=== PATIENT | male | born 1975 | race Two or more races ===

== ENCOUNTER 2023-11-17 10:24 | Observation (INO) | payer OTHER ==
[2023-11-17] VITALS (23 sets, daily range): BP systolic 114–146; BP diastolic 69–92; PULSE 62–95; RESP 12–18; TEMP 97.6–98.6; O2SAT 97–100
[~2023-11-17] VITALS: Ht 170.2 cm; Wt 96.0 kg
[2023-11-17] MEDS: ringers solution, lacted 1,000 ML IV SCH ×2 (05:30→22:27)
[~2023-11-17 10:24] MED LIST: ATOR80TA PO; DEXT30DR6 OP; DOCU100C40 PO; MONT-40 PO; cefazolin 2gm/D5W 100mL 100 ML IV ONE; famotidine 20mg tablet PO ONE; vancomycin 1,500 MG in NS 300ml IV soln IV ONE
[2023-11-17 12:02] LABS: BASOPHILS % (AUTO) 0.6 % (0-1); EOSINOPHILS # (AUTO) 0.2 X10'3 (0-0.9); EOSINOPHILS % (AUTO) 3.1 % (0-6); HEMATOCRIT 46.5 % (42.0-52.0); HEMOGLOBIN 15.6 g/dl (14.0-17.9); LYMPHOCYTES # (AUTO) 2.2 X10'3 (1.1-4.8); LYMPHOCYTES % (AUTO) 33.5 % (21-51); MEAN CORPUSCULAR HEMOGLOBIN 29.8 PG (27.0-31.0); MEAN CORPUSCULAR HGB CONC 33.6 g/dL (33.0-36.5); MEAN CORPUSCULAR VOLUME 88.5 FL (78-98); MEAN PLATELET VOLUME 7.3 FL (7.4-10.4); MONOCYTES # (AUTO) 0.4 X10'3 (0-0.9); MONOCYTES % (AUTO) 6.1 % (2-12); NEUTROPHILS # (AUTO) 3.7 X10'3 (1.8-7.7); NEUTROPHILS % (AUTO) 56.7 % (42-75); PLATELET COUNT 214 X10'3 (140-440); RED BLOOD COUNT 5.25 X10'6 (4.70-6.10); RED CELL DISTRIBUTION WIDTH 13.7 % (11.5-14.5); WHITE BLOOD COUNT 6.6 X10'3 (4.5-11.0)
[2023-11-17 12:40] LABS: ALANINE AMINOTRANSFERASE 25 U/L (12-78); ALBUMIN 3.7 G/DL (3.4-5.0); ALKALINE PHOSPHATASE 68 IU/L (46-116); ANION GAP 6 (8-16); ASPARTATE AMINO TRANSFERASE 15 U/L (10-37); BILIRUBIN,TOTAL 0.9 MG/DL (0.1-1.0); BLOOD UREA NITROGEN 10 MG/DL (7-18); BUN/CREATININE RATIO 10.3 (10.0-20.0); CALCIUM 8.8 MG/DL (8.5-10.1); CHLORIDE 105 MMOL/L (99-107); CREATININE 0.97 MG/DL (0.60-1.10); GLUCOSE 99 MG/DL (70-104); POTASSIUM 4.2 MMOL/L (3.5-5.1); SODIUM 138 MMOL/L (135-145); TOTAL CARBON DIOXIDE 27.1 MMOL/L (24-32); TOTAL PROTEIN 7.4 G/DL (6.4-8.2); eCRCL 86 ML/MIN; eGFR 82 ML/MIN
[2023-11-17] MEDS ORDERED: epiNEPHrine 1 mg/ml 30ml MDV ONE (13:47)
[2023-11-17] MEDS ORDERED: Thrombin (Bovine) 5,000 unit vial TP ONE ×2 (13:48→14:22)
[2023-11-17] MEDS ORDERED: gelatin sponge, absorbable (Gelfoam 100) sponge TP ONE (13:48)
[2023-11-17] MEDS ORDERED: ROPIVAcaine 0.5% (5mg/ml) 30ml vial ONE ×2 (13:48→14:36)
[2023-11-17] MEDS ORDERED: epiNEPHrine 1 mg/ml inj ONE (14:22)
[2023-11-17] MEDS ORDERED: proCHLORperazine 10 MG/2 ml inj IV PRN (14:25)
[2023-11-17] MEDS ORDERED: morphine 2 MG/ML inj. syringe IV PRN (14:25)
[2023-11-17] MEDS ORDERED: morphine 4 MG/ML inj SYRINge IV PRN (14:25)
[2023-11-17] MEDS ORDERED: ondansetron/PF 4mg/2ml inj IV PRN ×2 (14:25→19:10)
[2023-11-17] MEDS ORDERED: ringers solution, lacted 1,000 ML IV SCH (14:25)
[2023-11-17] MEDS ORDERED: meperidine/PF 25mg/ml syringe IV PRN ×3 (14:25)
[2023-11-17] MEDS ORDERED: fentaNYL/PF 50MCG/1 ML 2ML syringe ONE ×2 (14:33→16:54)
[2023-11-17] MEDS ORDERED: propofol inj 20 ML IV ONE (14:34)
[2023-11-17] MEDS ORDERED: midazolam 1 mg/ML 2ml injection ONE (14:34)
[2023-11-17] MEDS ORDERED: LIDOcaine 2% (20mg/ml) 5ml vial ONE (14:34)
[2023-11-17] MEDS ORDERED: sevoflurane 250ml liquid IH ONE (14:34)
[2023-11-17] MEDS ORDERED: ondansetron/PF 4mg/2ml inj ONE (17:08)
[2023-11-17] MEDS ORDERED: dexamethasone sod phosphate 4mg/ml inj. ONE (17:08)
[2023-11-17] MEDS ORDERED: HYDROmorphone/PF 0.2 MG/ML SYRINGE IV PRN ×2 (19:10)
[2023-11-17] MEDS: normal saline 1000ml 1,000 ML IV SCH (19:10)
[2023-11-17] MEDS ORDERED: HYDROcodone/acetaminophen 5mg/325mg tablet PO PRN (19:10)
[2023-11-17] MEDS ORDERED: polyvinyl alcohol ophthalmic drops 15ml bottle EACHEYE PRN (20:05)
[2023-11-18 00:45] VITALS: BP 115/69
[2023-11-18] MEDS: HYDROcodone/acetaminophen 10/325mg tab PO PRN ×3 (01:59→14:39)
[2023-11-18 08:00] VITALS: RESP 16; O2SAT 95
[2023-11-18] MEDS: montelukast 10mg tablet PO SCH (08:00)
[2023-11-18] MEDS: docusate sod 100mg capsule PO SCH ×2 (08:16→21:05)
[2023-11-18] MEDS: atorvastatin 20mg tablet PO SCH (08:16)
[2023-11-18 10:00] VITALS: BP 122/67; PULSE 90; RESP 16; TEMP 98.1; O2SAT 95
[2023-11-18] MEDS: normal saline 1000ml 1,000 ML IV SCH (14:48)
[2023-11-18 18:00] VITALS: BP 125/71; PULSE 80; RESP 18; TEMP 97.1; O2SAT 97
[2023-11-18 21:00] VITALS: RESP 16; O2SAT 97
[2023-11-18 22:00] VITALS: BP 110/57; PULSE 70; RESP 18; TEMP 98.2; O2SAT 96
[2023-11-19] MEDS: HYDROcodone/acetaminophen 10/325mg tab PO PRN ×3 (01:41→11:52)
[2023-11-19 06:00] VITALS: BP 90/59; PULSE 61; RESP 18; TEMP 97.5; O2SAT 96
[2023-11-19] MEDS: montelukast 10mg tablet PO SCH (07:27)
[2023-11-19] MEDS: atorvastatin 20mg tablet PO SCH (07:28)
[2023-11-19] MEDS: docusate sod 100mg capsule PO SCH (08:00)
[2023-11-19 10:00] VITALS: BP 106/64; PULSE 60; RESP 16; TEMP 98; O2SAT 96
[2023-11-19 17:47] VITALS: RESP 18
== END 2023-11-19 19:12 ==
LOC: PAS 10:24 → EEVIPCON 13:15 → ORTHO 4S 19:21
PROVIDERS: ADMIT Orthopaedic Surgery; ATTEND Orthopaedic Surgery
DX: M23.221 Derangement of posterior horn of medial meniscus due to old tear or injury, right knee (principal); G89.18 Other acute postprocedural pain; E78.5 Hyperlipidemia, unspecified; F41.8 Other specified anxiety disorders; E66.9 Obesity, unspecified; Z79.899 Other long term (current) drug therapy
CPT/HCPCS: 29882; 29888; 36415; 64447; 80053; 82948; 85025; 96365; 96375; 97116; 97161; 97530; C1713; C1762; G0378; J0171; J0690; J1100; J1170; J2175; J2250; J2405; J2704; J2795; J3010; J3370; J3490; J7030; J7120; L1832; A4215; A4615; A4618; A6449; A7000